=== PATIENT | female | born 1990 | race Caucasian/White ===

== ENCOUNTER 2017-01-09 18:27 | Inpatient (IN) | payer OTHER ==
[~2017-01-09] VITALS: Ht 172.7 cm; Wt 66.8 kg
[2017-01-09 19:20] LABS: HEMATOCRIT 39.8 % (36.0-46.0); MCH 31.4 PG (29.0-34.0); MCHC 35.2 G/DL (30.0-36.0); MCV 89.2 FL (83-99); MEAN PLAT.VOLUME 9.3 uM^3 (9.5-12.4); PLATELET COUNT 257 K/uL (156-360); RBC DIS.WIDTH-CV 11.2 % (11.8-14.6); RBC DIS.WIDTH-SD 36.3 % (39-53); RED BLOOD COUNT 4.46 M/uL (3.80-5.20); WHITE BLOOD COUNT 6.1 K/uL (4.1-10.2)
[2017-01-09 19:28] LABS: CHLORIDE 106 mEq/L (99-109); POTASSIUM 3.5 mEq/L (3.7-5.4); SODIUM 139 mEq/L (136-147)
[2017-01-09 19:30] LABS: GLUCOSE 78 mg/dL (70-99)
[2017-01-09 19:31] LABS: ANION GAP 10 MEQ/L (2-14)
[2017-01-09 19:33] LABS: GFR ESTIMATE (CALCULATED) > 59 mL/min/
[2017-01-09 19:34] LABS: UREA NITROGEN (BUN) 8 mg/dL (9-23)
[2017-01-10 01:00] VITALS: BP 120/66
[2017-01-10 07:09] LABS: HEMATOCRIT 36.4 % (36.0-46.0); MCH 31.9 PG (29.0-34.0); MCHC 35.2 G/DL (30.0-36.0); MCV 90.8 FL (83-99); PLATELET COUNT 209 K/uL (156-360); RBC DIS.WIDTH-CV 11.6 % (11.8-14.6); RBC DIS.WIDTH-SD 38.6 % (39-53); RED BLOOD COUNT 4.01 M/uL (3.80-5.20); WHITE BLOOD COUNT 4.4 K/uL (4.1-10.2)
[2017-01-10 07:29] LABS: ALKALINE PHOSPHATASE 47 IU/L (3-129); ANION GAP 7 MEQ/L (2-14); CHLORIDE 108 MEQ/L (99-109); GFR ESTIMATE (CALCULATED) > 59 mL/min/; POTASSIUM 4.1 MEQ/L (3.7-5.4); SAMPLE HEMOLYSIS CHECK 0; SAMPLE ICTERIC CHECK 0; SAMPLE LIPEMIA CHECK 0; SODIUM 139 MEQ/L (136-147); TOTAL BILIRUBIN 0.4 MG/DL (0.0-1.0); UREA NITROGEN (BUN) 8 mg/dL (9-23)
[2017-01-10 07:35] VITALS: BP 122/64
[2017-01-10 07:36] LABS: GLUCOSE 155 mg/dL (70-99)
[2017-01-10 12:16] VITALS: BP 166/90
[2017-01-10 15:47] VITALS: BP 124/66
[2017-01-10 21:47] LABS: APPEARANCE CLEAR/COLORLESS; CSF EOSINOPHILS 0 % (0-25); MONO RAW COUNT 98; MONONUCLEAR WBC'S 98 % (50-90); POLY RAW COUNT 2; POLYNUCLEAR WBC'S 2 % (0-3); RED CELL AREA COUNTED 18; RED CELL COUNT 0 /MM^3 (0-1); RED CELL DILUTION 1; WBC AREA COUNTED 18; WBC DILUTION 1; WHITE CELL COUNT 42 /MM^3 (0-5); WHITE CELL RAW COUNT 76
[2017-01-11] VITALS: BP 115/63
[2017-01-11 07:34] VITALS: BP 109/64
[2017-01-13 23:27] LABS: Albumin, Serum 4.3 g/dL (3.7-5.1); IgG Index, CSF 1.22 (<0.66); Synthesis Rate IgG, CSF 9.3 mg/24 h (-9.9-3.3)
== END 2017-01-11 19:27 | disposition home or self-care (01) | DRG 60 ==
LOC: EME 18:27 → EDOF 23:27 → 5SOUTH 01-10 00:59
PROVIDERS: Hospitalist; Internal Medicine
PROC: 009U3ZX Drainage of Spinal Canal, Percutaneous Approach, Diagnostic (ICD-10-PCS; principal; 2017-01-10)
DX: G35 Multiple sclerosis (principal); R20.9 Unspecified disturbances of skin sensation
CPT/HCPCS: 71020; 72156; 72157; 80048; 80053; 82945; 83873 90; 83916 90; 84157; 85027; 89051; 93005; 99281; 99284; J2930; J7030

== ENCOUNTER → 2017-01-09 | Outpatient (CLI) | payer OTHER ==
[~2017-01-09] MED LIST: ZOFRAN4 MG PO
== END | disposition home or self-care (01) ==
LOC: RAD 16:00
DX: G37.9 Demyelinating disease of central nervous system, unspecified (principal); R20.0 Anesthesia of skin
CPT/HCPCS: 70553